=== PATIENT | male | born 1955 | race Caucasian/White ===

== ENCOUNTER → 2017-05-11 | Outpatient (CLI) | payer OTHER ==
--- NOTE | ~2017-05-11 | CR242 ---
[facility] A Service of [facility] RADIOLOGY TEXT RESULTS PATIENT: DEBRA CID LOCATION: [facility] : 55 UNIT #: [id number] AGE: [address]: Brianna Gage SEX: M ORDER DR: [id number] [facility] [address] [place], [place] [address] [id number] O MR#: [id number] Acc #: [id number] NAME: DEBRA CID : 1955 SEX: M STUDY DATE/TIME: 05/11/2017 10:01 UNIT: [facility] ROOM: STUDY DESCRIPTION: CR Thoracic Spine 2 Views Attending Physician: Brianna Gage A.P.R.N. Referring Physician: Brianna Gage A.P.R.N. Ordering Physician: Brianna Gage A.P.R.N. MEDICAL IMAGING REPORT This report is preliminary unless electronic signature is present REVISED REPORT SEE ADDENDUM EXAM 3 views of the thoracic spine. DATE 05/11/2017 HISTORY 61-year-old male with ankylosing spondylitis, primary generalized osteoarthritis. Chronic back pain. Patient states symptoms have been present for 8 years. COMPARISON None. FINDINGS Thin gracile syndesmophytes are seen predominately anteriorly within nearly each thoracic vertebral level with preservation of normal disc space height. Thin lateral margin enthesophytes are also present particularly within the region of the thoracolumbar junction consistent with calcified apophyseal joint capsules. There does appear be calcification of the interspinous ligament, particularly from the T8 through the upper lumbar level. These findings are compatible with the patient's stated history of ankylosing spondylitis. No enthesophyte fracture is seen. No vertebral body fracture is seen. The spine maintains normal alignment. IMPRESSION 1. Thoracic spine features in keeping with the provided history of ankylosing spondylitis. No acute findings. [facility] A Service of [facility] RADIOLOGY TEXT RESULTS PATIENT: DEBRA CID LOCATION: [facility] : 55 UNIT #: [id number] AGE: [address]: Brianna Gage SEX: M ORDER DR: Dictated by... Jadyn Hill M.D. THIS IS AN ELECTRONICALLY VERIFIED REPORT Jadyn Hill M.D. at 05/12/2017 8:59 AM LLH/aa TD: 05/11/2017 13:55 JOB #: [id number] EXAM Thoracic spine series 05/11/2017. ADDENDUM No plain film evidence of active diskitis. Dictated by... Jadyn Hill M.D. THIS IS AN ELECTRONICALLY VERIFIED REPORT Jadyn Hill M.D. at 05/14/2017 6:13 AM LLH/ea TD: 05/11/2017 14:13 JOB #: [id number] CC: [email or web address] Please Delete MEDICAL IMAGING REPORT Page 1 of 1 COPY
--- NOTE | ~2017-05-11 | CR61 ---
[facility] A Service of [facility] RADIOLOGY TEXT RESULTS PATIENT: DEBRA CID LOCATION: [facility] : 55 UNIT #: [id number] AGE: [address]: Brianna Gage SEX: M ORDER DR: [id number] [place] [id number] [facility]. [place], [place] [address] [id number] O MR#: [id number] Acc #: [id number] NAME: DEBRA CID : 1955 SEX: M STUDY DATE/TIME: 05/11/2017 9:49 UNIT: [facility] ROOM: STUDY DESCRIPTION: CR Cervical Spine Min 5 Views Attending Physician: Brianna Gage A.P.R.N. Referring Physician: Brianna Gage A.P.R.N. Ordering Physician: Brianna Gage A.P.R.N. MEDICAL IMAGING REPORT This report is preliminary unless electronic signature is present REVISED REPORT SEE ADDENDUM EXAMINATION Five views of the cervical spine. DATE 05/11/2017. HISTORY 61-year-old male with ankylosing spondylitis of the cervical thoracic region. Primary generalized osteoarthritis. Patient states chronic back pain, symptoms began 8 years ago. COMPARISON None. FINDINGS AP, odontoid, right oblique, left oblique and lateral views were obtained. Thin gracile anterior syndesmophyte formation is present with preservation of normal disc space heights, extending from the C2 through C7 levels, in keeping with the provided history of ankylosing spondylitis. No definite interspinous ligament calcification can be seen on this exam. No vertebral body fracture or syndesmophyte fracture is seen. The cervical spine maintains normal alignment. No high-grade bony neural foraminal narrowing is identified on the oblique views. Only mild cervical facet arthropathy is thought to be present, greatest at C4-5 and C5-6. IMPRESSION 1. Cervical spine features of ankylosing spondylitis as described. No acute findings. [facility] A Service of [facility] RADIOLOGY TEXT RESULTS PATIENT: [id number] : 55 UNIT #: [id number] AGE: [address]: Brianna Gage SEX: M ORDER DR: Dictated by... Jadyn Hill M.D. THIS IS AN ELECTRONICALLY VERIFIED REPORT Jadyn Hill M.D. at 05/12/2017 8:59 AM LLH/pc TD: 05/11/2017 13:50 JOB #: [id number] ADDENDUM/CORRECTION ADDENDUM Cervical spine series 05/11/2017. Please make the following addendum: No plain film evidence of active discitis. Dictated by... Jadyn Hill M.D. THIS IS AN ELECTRONICALLY VERIFIED REPORT Jadyn Hill M.D. at 05/14/2017 6:13 AM LLH/cmm TD: 05/11/2017 13:54 JOB #: [id number] CC: [email or web address] Please Delete MEDICAL IMAGING REPORT Page 1 of 1 COPY
--- NOTE | ~2017-05-11 | CR217 ---
[facility] A Service of [facility] RADIOLOGY TEXT RESULTS PATIENT: DEBRA CID LOCATION: [facility] : 55 UNIT #: [id number] AGE: [address]: Brianna Gage SEX: M ORDER DR: [id number] [facility] [address] [place], [place] [address] [id number] O MR#: [id number] Acc #: [id number] NAME: DEBRA CID : 1955 SEX: M STUDY DATE/TIME: 05/11/2017 10:03 UNIT: [facility] ROOM: STUDY DESCRIPTION: CR Sacroiliac Joint 3 + Views Attending Physician: Brianna Gage A.P.R.N. Referring Physician: Brianna Gage A.P.R.N. Ordering Physician: Brianna Gage A.P.R.N. Primary Care Physician: No Primary Care Physician MEDICAL IMAGING REPORT This report is preliminary unless electronic signature is present EXAMINATION Three views of the sacroiliac joints. DATE 05/11/2017 HISTORY 61-year-old male with ankylosing spondylitis of the lumbar region, primary generalized osteoarthritis. Chronic back pain. Patient states symptoms have been present for 8 years. COMPARISON None. 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 Additionally, there is dense calcification of the interspinous ligament in the lumbar region with a "dagger" sign. There is a sclerosis along the margins of the pubic symphysis. Hip joint spaces appear well preserved. IMPRESSION 1. Features of ankylosing spondylitis as described. Complete ankylosis bilateral sacroiliac joints and calcification of the interspinous ligament of the lumbar region. 2. No acute findings. Dictated by... Jadyn Hill M.D. THIS IS AN ELECTRONICALLY VERIFIED REPORT Jadyn Hill M.D. at 05/12/2017 8:59 AM LL/matt [facility] A Service of [facility] RADIOLOGY TEXT RESULTS PATIENT: DEBRA CID LOCATION: [facility] #: [id number] : 55 UNIT #: [id number] AGE: [address]: Brianna Gage SEX: M ORDER DR: TD: 05/11/2017 13:58 JOB #: [id number] MEDICAL IMAGING REPORT Page 1 of 1 COPY
--- NOTE | ~2017-05-11 | CR63 ---
[facility] A Service of [facility] RADIOLOGY TEXT RESULTS PATIENT: DEBRA CID LOCATION: [facility] : 55 UNIT #: [id number] AGE: [address]: Brianna Gage SEX: M ORDER DR: [id number] [facility] [address] [place], [place] [address] [id number] O MR#: [id number] Acc #: [id number] NAME: DEBRA CID : 1955 SEX: M STUDY DATE/TIME: 05/11/2017 9:42 UNIT: [facility] ROOM: STUDY DESCRIPTION: CR Chest 2 View Attending Physician: Brianna Gage A.P.R.N. Referring Physician: Brianna Gage A.P.R.N. Ordering Physician: Brianna Gage A.P.R.N. Primary Care Physician: No Primary Care Physician MEDICAL IMAGING REPORT This report is preliminary unless electronic signature is present EXAM PA and lateral chest. DATE 05/11/2017 at 09:42. HISTORY 61-year-old male with primary generalized osteoarthritis, ankylosing spondylitis, long-term use of steroids. Chronic back pain, symptoms for 8 years per patient. COMPARISON AP portable chest 05/17/2015. FINDINGS No acute airspace disease. Heart size at upper limits normal and is stable. No pleural effusion. No pneumothorax. No acute or suspicious osseous lesions. IMPRESSION No acute cardiopulmonary findings. No significant change compared to 05/17/2015. Dictated by... Jadyn Hill M.D. THIS IS AN ELECTRONICALLY VERIFIED REPORT Jadyn Hill M.D. at 05/12/2017 8:59 AM LL/matt TD: 05/11/2017 13:18 JOB #: [id number] [facility] A Service of [facility] RADIOLOGY TEXT RESULTS PATIENT: DEBRA CID LOCATION: [facility] : 55 UNIT #: [id number] AGE: [address]: Brianna Gage SEX: M ORDER DR: MEDICAL IMAGING REPORT Page 1 of 1 COPY
--- NOTE | ~2017-05-11 | CR182 ---
[facility] A Service of [facility] RADIOLOGY TEXT RESULTS PATIENT: DEBRA CID LOCATION: [facility] : 55 UNIT #: [id number] AGE: [address]: Brianna Gage SEX: M ORDER DR: [id number] [facility] [address]. [place], [place] [address] [id number] O MR#: [id number] Acc #: [id number] NAME: DEBRA CID : 1955 SEX: M STUDY DATE/TIME: 05/11/2017 10:06 UNIT: [facility] ROOM: STUDY DESCRIPTION: CR Lumbar Spine Bending Only 2 Attending Physician: Brianna Gage A.P.R.N. Referring Physician: Brianna Gage A.P.R.N. Ordering Physician: Brianna Gage A.P.R.N. Primary Care Physician: No Primary Care Physician MEDICAL IMAGING REPORT This report is preliminary unless electronic signature is present EXAM 3 views lumbar spine with flexion extension. DATE 05/11/2017 HISTORY 61-year-old male with history of lumbar region ankylosing spondylitis. Primary generalized osteoarthritis. Chronic back pain. Patient states symptoms have been present for 8 years. COMPARISON None. FINDINGS Thin gracile confluent syndesmophyte formation is seen throughout the lumbar spine. The disc space height appears preserved. No marginal erosive changes are identified. Endplates appear well preserved without evidence of erosive change. Calcification of the interspinous ligament in the lumbar region is demonstrated to better advantage on the AP view of the sacroiliac joints performed separately on this same date. The constellation of findings is in keeping with the stated history of ankylosing spondylitis. Flexion extension views demonstrate no lumbar instability. No anterolisthesis or retrolisthesis is identified. Incidental note of abdominal aortic atherosclerotic calcification. IMPRESSION 1. Lumbar spine features in keeping with the stated history of ankylosing spondylitis as described. No acute findings. No evidence of lumbar spine instability. [facility] A Service of [facility] RADIOLOGY TEXT RESULTS PATIENT: [id number] : 55 UNIT #: [id number] AGE: [address]: Brianna Gage SEX: M ORDER DR: Dictated by... Jadyn Hill M.D. THIS IS AN ELECTRONICALLY VERIFIED REPORT Jadyn Hill M.D. at 05/12/2017 8:59 AM JAGDISH/jaxson TD: 05/11/2017 14:08 JOB #: [id number] MEDICAL IMAGING REPORT Page 1 of 1 COPY
--- NOTE | ~2017-05-11 | CR242 ---
[facility] A Service of [facility] RADIOLOGY TEXT RESULTS PATIENT: DEBRA CID LOCATION: [facility] : 55 UNIT #: [id number] AGE: [address]: Brianna Gaeg SEX: M ORDER DR: [id number] [facility] [address] [place], [place] [address] [id number] O MR#: [id number] Acc #: ? NAME: DEBRA CID : 1955 SEX: M STUDY DATE/TIME: 05/11/2017 10:01 UNIT: [facility] ROOM: STUDY DESCRIPTION: CR Thoracic Spine 2 Views Attending Physician: Brianna Gage A.P.R.N. Referring Physician: Brianna Gage A.P.R.N. Ordering Physician: Brianna Gage A.P.R.N. Primary Care Physician: No Primary Care Physician MEDICAL IMAGING REPORT This report is preliminary unless electronic signature is present EXAM Thoracic spine series 05/11/2017. ADDENDUM No plain film evidence of active diskitis. Dictated by... Harish Bernard TD: 05/11/2017 14:13 JOB #: [id number] MEDICAL IMAGING REPORT Page 1 of 1
== END | disposition home or self-care (01) ==
LOC: CRAD 09:19
DX: M15.0 Primary generalized (osteo)arthritis (principal); M45.3 Ankylosing spondylitis of cervicothoracic region; M45.6 Ankylosing spondylitis lumbar region; Z79.1 Long term (current) use of non-steroidal anti-inflammatories (NSAID); Z79.899 Other long term (current) drug therapy; M46.96 Unspecified inflammatory spondylopathy, lumbar region; M46.92 Unspecified inflammatory spondylopathy, cervical region
CPT/HCPCS: 71020; 72050; 72070; 72120; 72202